=== PATIENT | male | born 1965 | race Caucasian/White ===

== ENCOUNTER 2019-11-11 21:38 | Emergency (ER) | payer SELFPAY ==
[~2019-11-11] VITALS: Ht 165.1 cm; Wt 74.8 kg
--- NOTE | 2019-11-11 21:38 | NUR ---
BROUGHT TO A BY [facility].
[2019-11-11 21:42] VITALS: BP_SYST 156; BP_DIAS 10; BP_DIAS 110
[2019-11-11] MEDS ORDERED: INSULIN REGULAR, HUMAN 100 UNIT/ML VIAL SUBQ ONE (21:50)
[2019-11-11] MEDS ORDERED: METOPROLOL 25 MG TAB PO ONE (21:50)
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
--- NOTE | 2019-11-11 22:05 | NUR ---
PT REFUSING ALL MEDICATIONS. DR PARKER NOTIFIED.
--- NOTE | 2019-11-11 22:27 | NUR ---
Patient discharged with v/s stable. Written and verbal after care instructions given and explained. Patient verbalized understanding. with . All questions addressed prior to discharge. discharged back to [facility] custody.
== END 2019-11-11 22:20 ==
LOC: MED 21:38
DX: E11.9 Type 2 diabetes mellitus without complications (principal); Z02.89 Encounter for other administrative examinations
CPT/HCPCS: 99283; J1815